=== PATIENT | male | born 1975 | race Caucasian/White ===

== ENCOUNTER 2020-04-17 07:18 | Outpatient (CLI) | payer BC, SELFPAY ==
--- NOTE | ~2020-04-17 | MR_ITS ---
EXAMINATION: MRA brain wo con EXAM DATE: 04/17/2020 08:31 INDICATION: Headaches. History of cerebral aneurysm. TECHNIQUE: 3-D [id number] MRA of the intracranial arteries was performed without contrast. There is no prior study for comparison. FINDINGS: There is normal flow related signal seen within the and internal carotid and cerebral arteries. Some regions of decreased flow related signal in the left vertebral artery, and the basilar artery without focal stenosis, potentially artifactual. There are no aneurysms identified. Both A1 and P1 segmen ts are patent. Flow in the cerebral arteries is symmetric. 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 IMPRESSION: 1. Punctate old left pontine infarction. 2. Basilar, left vertebral decrease flow related signal probably something artifactual given normal f low related signal in other segments. 3. No aneurysm identified. Reviewed, dictated and finalized at location B. IMPRESSION: 1. Punctate old left pontine infarction. 2. Basilar, left vertebral decrease flow related signal probably something mike factual given normal flow related signal in other segments. 3. No aneurysm identified.
== END 2020-04-17 07:19 ==
PROVIDERS: PCP Internal Medicine; Visit Provider Internal Medicine
DX: R51 Headache (principal); Z86.79 Personal history of other diseases of the circulatory system; Z86.73 Personal history of transient ischemic attack (TIA), and cerebral infarction without residual deficits
CPT/HCPCS: 70544

== ENCOUNTER 2020-05-02 10:25 | Outpatient (CLI) | payer BC, SELFPAY ==
--- NOTE | ~2020-05-02 | MR_ITS ---
EXAMINATION: MRA neck wo/w con DATE: 05/02/2020 12:00 INDICATION: Headache. Danilo infarct. Cerebral aneurysm. TECHNIQUE: Magnetic resonance angiography (MRA) of the neck was performed without and with 18 mL Mult iHance intravenous contrast. Sequences included axial 2D-time of flight T1-weighted FSPGR, axial Inha nce, and coronal T1-weighted FSPGR without and with intravenous contrast. COMPARISON: None. FINDINGS: Left vertebral artery is dominant. There is no significant stenosis of the vertebral arteries. There is no visible plaque in the proximal internal carotid arteries. There is 0% stenosis of the proximal right internal carotid artery relative to normal distal artery lumen diameter (NASCET criteria). The re is 0% stenosis of the proximal left internal carotid artery relative to normal distal artery lumen diameter. IMPRESSION: 1. Normal neck arteries. Reviewed, dictated and finalized at location A. IMPRESSION: 1. Normal neck arteries.
[2020-05-02 11:07] LABS: Estimated Glomerular Filt Rate > 60
== END 2020-05-02 10:26 ==
PROVIDERS: PCP Internal Medicine; Visit Provider Internal Medicine
DX: R51 Headache (principal); Z86.79 Personal history of other diseases of the circulatory system
CPT/HCPCS: 70549; A9577

== ENCOUNTER 2020-08-08 15:08 | Outpatient (CLI) | payer BC, SELFPAY ==
[2020-08-09 12:14] LABS: SARS-CoV-2 RNA PCR Negative
== END 2020-08-08 15:09 | disposition home or self-care (01) ==
PROVIDERS: PCP Internal Medicine; Visit Provider Internal Medicine
DX: Z20.828 Contact with and (suspected) exposure to other viral communicable diseases (principal)
CPT/HCPCS: 87635; C9803; U0003

== ENCOUNTER 2022-10-08 11:07 | Outpatient (CLI) | payer BC, SELFPAY ==
--- NOTE | ~2022-10-08 | CT_ITS ---
CT Abdomen and Pelvis with contrast. History: Abdominal pain. Spiral CT of the abdomen and pelvis was performed after the administration of intravenous contrast. 1 00 cc of Omnipaque 350 was administered intravenously without complication. Dose reduction technique was used on this scan by utilizing automated exposure control and iterative reconstruction technique. The dose-length product (DLP) was 809.17 mGy-cm. Findings: Scans through the lung bases demonstrate mild atelectatic change. The liver, spleen, pancreas, gallbladder, adrenals and kidneys are within normal limits. No evidence of aortic aneurysm. There is wall thickening of sigmoid colon with extensive pericolonic inflammatory change, compatible with acute diverticulitis. Shotty reactive pericolonic lymph nodes are present. No abscess or definit e free air seen. No bowel obstruction. Images through the pelvis were performed. Urinary bladder unremarkable. Prostate gland and seminal ve sicles are unremarkable. No ascites is seen. Impression: Acute sigmoid diverticulosis. No abscess or free air. Reviewed, dictated and finalized at [facility]. RETE TESTER Impression: Acute sigmoid diverticulosis. No abscess or free air.
[2022-10-08 11:26] LABS: Basophils Absolute Auto 0.03 K/mm3 (0.00-0.10); Basophils Percent Auto 0.2 % (0.0-1.0); Eosinophils Absolute Auto 0.08 K/mm3 (0.02-0.50); Eosinophils Percent Auto 0.5 % (1.0-6.0); Hematocrit 48.6 % (40.0-54.0); Hemoglobin 15.8 g/dL (14.0-18.0); Immature Granulocyte Absolute 0.07 K/mm3 (0.00-0.00); Immature Granulocyte Percent A 0.4 % (0.0-0.0); Lymphocytes Absolute Auto 1.37 K/mm3 (1.10-4.50); Lymphocytes Percent Auto 8.1 % (18.0-42.0); Mean Corpuscular HGB Conc 32.5 g/dL (32.0-36.0); Mean Corpuscular Hemoglobin 29.8 pg (27.0-31.0); Mean Corpuscular Volume 91.7 fL (78.0-102.0); Monocytes Absolute Auto 1.52 K/mm3 (0.10-0.90); Neutrophils Absolute Auto 13.9 K/mm3 (1.7-7.2); Neutrophils Percent Auto 81.8 % (50.0-70.0); Platelet Count Result 222 K/mm3 (150-420); Red Cell Distribution Width 13.8 % (11.6-14.4)
[2022-10-08 11:42] LABS: Alanine Aminotransferase 28 U/L (16-63); Albumin Level 3.4 g/dL (3.4-5.0); Alkaline Phosphatase 88 U/L (46-116); Anion Gap 5 mmol/L (8-16); Aspartate Amino Transferase 12 U/L (15-37); Bilirubin,Total 0.7 mg/dL (0.00-1.00); Blood Urea Nitrogen 18 mg/dL (7-18); Calcium 8.8 mg/dL (8.5-10.1); Carbon Dioxide 33 mmol/L (21-32); Chloride 100 mmol/L (98-108); Estimated Glomerular Filt Rate > 60; Glucose 102 mg/dL (70-99); Osmolality Calculated 287 mOsm/kg (285-295); Potassium 4.3 mmol/L (3.5-5.1); Sodium 138 mmol/L (136-145)
== END 2022-10-08 11:08 | disposition home or self-care (01) ==
LOC: CHSLAB 11:09
PROVIDERS: PCP Internal Medicine; Visit Provider Internal Medicine
DX: R10.32 Left lower quadrant pain (principal); K57.30 Diverticulosis of large intestine without perforation or abscess without bleeding
CPT/HCPCS: 36415; 74177; 80053; 85025; Q9967